=== PATIENT | male | born 1975 | race Caucasian/White ===

== ENCOUNTER 2017-07-12 19:54 | Emergency (ER) | payer OTHER ==
[2017-07-12 20:10] VITALS: BP 149/89
--- NOTE | 2017-07-12 20:17 | EDM.PDOC ---
ED HPI GENERAL MEDICAL PROBLEM - General Chief Complaint: ENT Problem Stated Complaint: EYE PROBLEM Time Seen by Provider: 07/12/17 20:17 Source of Information: Reports: Patient History Limitations: Reports: No Limitations - History of Present Illness INITIAL COMMENTS - FREE TEXT/NARRATIVE: 42-year-old male presents to the ED with a foreign body sensation in his right eye since about 1400 hrs. today. At that time he is mowing the lawn in the workplace. Was not sure if something got into his eye at that time but it's been tearful and foreign body sensation since that time. The eyes become more inflamed and erythematous over the last 4 hours. No itching. No purulent material. He does not wear contact lenses or eyeglasses. His visual acuity is unchanged and is 20/20 according to the nurses reporting. 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 1 tab PO DAILY 07/12/17 [History] Citalopram. 1 tab PO DAILY 07/12/17 [History] Fish Oil/[place]-3 Fatty Acids [Fish Oil 1,000 MG] 1 tab PO DAILY 07/12/17 [ History] Folic Acid/Multivit-Min/Lutein [Adult Multivitamin Gummies] 1 tab PO DAILY 07/12 [History] Lisinopril. 1 tab PO DAILY 07/12/17 [History] Simvastatin. 1 tab PO DAILY 07/12/17 [History] Past Medical History Cardiovascular History: Reports: High Cholesterol, Hypertension Psychiatric History: Reports: Anxiety Social & Family History - Tobacco Use Smoking Status *Q: Never Smoker - Caffeine Use Caffeine Use: Reports: None - Recreational Drug Use Recreational Drug Use: No - Living Situation & Occupation Living situation: Reports: Single Occupation: Employed ED ROS GENERAL - Review of Systems Review Of Systems: See Below Constitutional: Reports: No Symptoms HEENT: Reports: Eye Pain (Foreign body sensation right eye with excessive tearing since 1400 hrs. today.) Respiratory: Reports: No Symptoms Cardiovascular: Reports: No Symptoms Endocrine: Reports: No Symptoms GI/Abdominal: Reports: No Symptoms : Reports: No Symptoms Musculoskeletal: Reports: No Symptoms Skin: Reports: No Symptoms Neurological: Reports: No Symptoms Psychiatric: Reports: No Symptoms Hematologic/Lymphatic: Reports: No Symptoms ED EXAM GENERAL W FULL EYE - Physical Exam Exam: See Below Exam Limited By: No Limitations General Appearance: Alert, WD/WN, No Apparent Distress Eye Exam: Right Eye: Conjunctival Injection (Mild.), Foreign Body (One of his lower eyelashes was rubbing against the cornea in the midline.) Visual Acuity (R) 20/: 2,020 With Correction: No Eyelids: Right: Lid Everted for Exam (No foreign bodies identified.) Conjunctiva & Sclera: Right: Normal Appearance Cornea Exam: Right: Normal Appearance (On examination with slit lamp.), Foreign Body (One of his lower eyelashes was identified on slit lamp exam to be rubbing against his cornea. It was removed with a thumb forceps.) Extraocular Movements: Bilateral: Intact Pupils: Normal Accommodation Pupillary Size: Bilateral: 5 mm Pupillary Reaction: Bilateral: Brisk (Equal bilaterally.) Anterior Chamber: Right: Normal Appearance Posterior Chamber: Right: Normal Funduscopic Comments: Cause of problem seems to be lower eyelid eyelash causing foreign body sensation as well as rubbing against his cornea. Course - Vital Signs Last Recorded V/S: Last Vital Signs Temp 36.7 C 07/12/17 20:07 Pulse 90 07/12/17 20:07 Resp 16 07/12/17 20:07 BP 149/89 H 07/12/17 20:07 Pulse Ox 98 07/12/17 20:07 - Radiology Interpretation Free Text/Narrative:: 42-year-old male presents the ED with a foreign body sensation in his right eye since 1400 hrs. today. States seem to occur after he was mowing grass in the workplace today. He has become more irritated and erythematous as the day has gone on. Examination with lid eversion showed no foreign bodies identified. Corneas completely clear anterior chambers clear posterior chamber clear conjunctiva normal. Slit-lamp exam did reveal a singular lower eyelash rubbing on his cornea in the midline. It was removed with a thumb forceps. Of note patient had complete relief of his discomfort with proparacaine eyedrops. Discharged home with no follow-up advised less further problems occur. Departure - Departure Time of Disposition: 20:39 Disposition: Home, Self-Care 01 Condition: Fair Clinical Impression: Foreign body of eye, external, right Qualifiers: Encounter type: initial encounter Qualified Code(s): T15.91XA - Foreign body on external eye, part unspecified, right eye, initial encounter - Discharge Information Referrals: Manju Au DIRECTORY COMPILER [Primary Care Provider] - Forms: ED Department Discharge Additional Instructions: Evaluation the emergency room today in regards to foreign body sensation in the right eye since mowing grass earlier today. I continues to water and have foreign body sensation. No removal of foreign body by you identified. On examination no foreign bodies were identified other than an eyelash on the lower lid that was touching the cornea when you I. The 2 eyelashes were removed with thumb forceps. No abnormalities were appreciated in the cornea or the conjunctiva or up under the lid. I would anticipate no further problems.
== END 2017-07-12 20:50 | disposition home or self-care (01) ==
LOC: JD.ED 19:54
DX: T15.91XA Foreign body on external eye, part unspecified, right eye, initial encounter (principal); I10 Essential (primary) hypertension; E78.00 Pure hypercholesterolemia, unspecified; F41.9 Anxiety disorder, unspecified; Z79.899 Other long term (current) drug therapy
CPT/HCPCS: 65220; 99282; 99283-25